=== PATIENT | female | born 1975 | race Caucasian/White ===

== ENCOUNTER 2017-10-07 09:26 | Emergency (ER) | payer BC ==
[~2017-10-07] VITALS: Ht 172.7 cm; Wt 54.0 kg
[~2017-10-07 09:26] MED LIST: AMLO2.5T2 PO
[2017-10-07 11:05] LABS: BASOPHILS # (AUTO) 0.1 X10'3 (0-0.2); BASOPHILS % (AUTO) 0.6 % (0-1); EOSINOPHILS # (AUTO) 0.3 X10'3 (0-0.9); EOSINOPHILS % (AUTO) 3.1 % (0-6); HEMATOCRIT 37.6 % (35.0-45.0); HEMOGLOBIN 13.1 g/dl (12.0-16.0); LYMPHOCYTES # (AUTO) 1.4 X10'3 (1.1-4.8); LYMPHOCYTES % (AUTO) 17.2 % (21-51); MEAN CORPUSCULAR HEMOGLOBIN 33.1 PG (27.0-31.0); MEAN CORPUSCULAR HGB CONC 34.8 % (33.0-36.5); MEAN CORPUSCULAR VOLUME 95.1 FL (78-98); MEAN PLATELET VOLUME 8.5 FL (7.4-10.4); MONOCYTES # (AUTO) 0.3 X10'3 (0-0.9); MONOCYTES % (AUTO) 3.2 % (2-12); NEUTROPHILS # (AUTO) 6.3 X10'3 (1.8-7.7); NEUTROPHILS % (AUTO) 75.9 % (42-75); PLATELET COUNT 209 X10'3 (140-440); RED BLOOD COUNT 3.96 X10'6 (4.20-5.60); RED CELL DISTRIBUTION WIDTH 13.8 % (11.5-14.5); WHITE BLOOD COUNT 8.3 X10'3 (4.5-11.0)
[2017-10-07 11:15] LABS: ALBUMIN 3.9 G/DL (3.4-5.0); ANION GAP 8 (8-16); BLOOD UREA NITROGEN 12 MG/DL (7-18); BUN/CREATININE RATIO 19.7 (6.6-38.0); CALCIUM 8.3 MG/DL (8.5-10.1); CHLORIDE 108 MMOL/L (99-107); CREATININE 0.61 MG/DL (0.40-0.90); GLUCOSE 93 MG/DL (70-104); POTASSIUM 3.9 MMOL/L (3.5-5.1); SODIUM 142 MMOL/L (135-145); TOTAL CARBON DIOXIDE 26.5 MMOL/L (24-32); eGFR > 90 ML/MIN
[2017-10-07 11:41] VITALS: BP 116/77
== END 2017-10-07 11:43 | disposition home or self-care (01) ==
LOC: ER 09:27
DX: N93.9 Abnormal uterine and vaginal bleeding, unspecified (principal)
CPT/HCPCS: 36415; 80048; 85025; 99284

== ENCOUNTER 2019-01-14 08:56 | Emergency (ER) | payer BC ==
[~2019-01-14] VITALS: Ht 172.7 cm; Wt 76.0 kg
[2019-01-14 09:06] VITALS: BP 116/72
[2019-01-14] MEDS ORDERED: ketorolac tromethamine 15mg/ml inj. IM ONE (09:55)
[2019-01-14] MEDS ORDERED: predniSONE 20 mg tablet PO ONE (09:55)
[2019-01-14] MEDS ORDERED: PRED20TA PO (10:09)
== END 2019-01-14 10:30 | disposition home or self-care (01) ==
LOC: ER 08:57
DX: M79.602 Pain in left arm (principal); Z98.890 Other specified postprocedural states; Z79.899 Other long term (current) drug therapy; Z88.1 Allergy status to other antibiotic agents
CPT/HCPCS: 96372; 99283; J1885; J7512

== ENCOUNTER 2020-11-06 06:53 | Emergency (ER) | payer BC ==
[~2020-11-06] VITALS: Ht 172.7 cm; Wt 68.2 kg
[2020-11-06 07:02] VITALS: BP 134/73
[2020-11-06] MEDS ORDERED: ALBUTEROL INHALER 1 PUFF/90 MCG INHALER IH PRN (08:00)
[2020-11-06] MEDS ORDERED: BENZ-16 PO (08:07)
== END 2020-11-06 09:54 | disposition home or self-care (01) ==
LOC: ER 06:54
DX: J02.9 Acute pharyngitis, unspecified (principal); Z20.822 Contact with and (suspected) exposure to COVID-19; R09.81 Nasal congestion; M79.18 Myalgia, other site; R53.83 Other fatigue; R05 Cough; R06.02 Shortness of breath; R51.9 Headache, unspecified; F41.9 Anxiety disorder, unspecified; F17.200 Nicotine dependence, unspecified, uncomplicated; F12.90 Cannabis use, unspecified, uncomplicated; Z98.890 Other specified postprocedural states; Z88.1 Allergy status to other antibiotic agents; Z79.899 Other long term (current) drug therapy
CPT/HCPCS: 36415; 71045; 99284; U0003; U0005; 94640; 94760

== ENCOUNTER 2021-08-22 06:35 | Emergency (ER) | payer BC ==
[~2021-08-22] VITALS: Ht 172.7 cm; Wt 68.2 kg
[2021-08-22 06:50] VITALS: BP 113/74
[2021-08-22] MEDS ORDERED: acetaminophen 325mg tablet PO ONE (07:45)
[2021-08-22] MEDS ORDERED: ketorolac trometh inj. 60 MG/2 ML VIAL IM ONE (07:45)
[2021-08-22] MEDS ORDERED: ketorolac trometh. 30mg/ml inj. IM ONE (07:50)
[2021-08-22] MEDS ORDERED: triamcinolone acetonide 40mg/ml inj IM ONE (08:05)
[2021-08-22] MEDS ORDERED: HYDR-3965 PO (08:34)
[2021-08-22] MEDS ORDERED: CYCL-1 PO (08:34)
== END 2021-08-22 08:45 | disposition home or self-care (01) ==
LOC: ER 06:36
DX: M25.512 Pain in left shoulder (principal); F12.90 Cannabis use, unspecified, uncomplicated; Z98.891 History of uterine scar from previous surgery; Z88.1 Allergy status to other antibiotic agents; Z79.899 Other long term (current) drug therapy
CPT/HCPCS: 20552; 73030; 96372; 99284; J1885

== ENCOUNTER 2024-09-28 07:30 | Emergency (ER) | payer BC ==
[~2024-09-28] VITALS: Ht 170.2 cm; Wt 73.3 kg
[~2024-09-28 07:30] MED LIST changes: +CYCL-1 PO; +DEXA6TAB PO; +FAMO20TA47 PO; +ONDA-243 PO
[2024-09-28 08:23] LABS: BASOPHILS # (AUTO) 0.1 X10'3 (0-0.2); BASOPHILS % (AUTO) 0.5 % (0-1); EOSINOPHILS # (AUTO) 0.3 X10'3 (0-0.9); EOSINOPHILS % (AUTO) 2.4 % (0-6); HEMATOCRIT 40.4 % (35.0-45.0); HEMOGLOBIN 13.9 g/dl (12.0-16.0); LYMPHOCYTES # (AUTO) 1.5 X10'3 (1.1-4.8); LYMPHOCYTES % (AUTO) 12.5 % (21-51); MEAN CORPUSCULAR HEMOGLOBIN 32.3 PG (27.0-31.0); MEAN CORPUSCULAR HGB CONC 34.5 g/dL (33.0-36.5); MEAN CORPUSCULAR VOLUME 93.7 FL (78-98); MEAN PLATELET VOLUME 8.5 FL (7.4-10.4); MONOCYTES # (AUTO) 0.5 X10'3 (0-0.9); MONOCYTES % (AUTO) 4.5 % (2-12); NEUTROPHILS # (AUTO) 9.6 X10'3 (1.8-7.7); NEUTROPHILS % (AUTO) 80.1 % (42-75); PLATELET COUNT 285 X10'3 (140-440); RED BLOOD COUNT 4.31 X10'6 (4.20-5.60); RED CELL DISTRIBUTION WIDTH 13.1 % (11.5-14.5)
[2024-09-28] MEDS: oxyCODONE/APAP 5-325mg tablet PO ONE ×2 (08:43→12:27)
[2024-09-28] MEDS: ondansetron 4mg rapidly disintigrating tab PO ONE (08:44)
[2024-09-28 08:47] LABS: ALANINE AMINOTRANSFERASE 16 U/L (12-78); ALBUMIN 3.9 G/DL (3.4-5.0); ALKALINE PHOSPHATASE 85 IU/L (46-116); ANION GAP 7 (8-16); ASPARTATE AMINO TRANSFERASE 11 U/L (10-37); BILIRUBIN,TOTAL 0.7 MG/DL (0.1-1.0); BLOOD UREA NITROGEN 10 MG/DL (7-18); BUN/CREATININE RATIO 19.6 (10.0-20.0); CALCIUM 8.5 MG/DL (8.5-10.1); CHLORIDE 106 MMOL/L (99-107); CREATININE 0.51 MG/DL (0.40-0.90); GLUCOSE 98 MG/DL (70-104); LIPASE 21 U/L (16-77); POTASSIUM 3.7 MMOL/L (3.5-5.1); SODIUM 138 MMOL/L (135-145); TOTAL CARBON DIOXIDE 24.6 MMOL/L (24-32); TOTAL PROTEIN 7.7 G/DL (6.4-8.2); eCRCL 131 ML/MIN; eGFR > 90 ML/MIN
[2024-09-28 09:20] LABS: URINE HCG NEGATIVE (NEG)
[2024-09-28 09:25] LABS: BILIRUBIN,URINE NEGATIVE (Neg); CLARITY,URINE CLEAR (Clear); COLOR,URINE YELLOW (Yellow); GLUCOSE, URINE NEGATIVE (Neg); KETONES,URINE NEGATIVE (Neg); LEUKOCYTE ESTERASE ,URINE NEGATIVE (Neg); NITRITES, URINE NEGATIVE (Neg); OCCULT BLOOD,URINE NEGATIVE (Neg); PROTEIN,URINE NEGATIVE (Neg); UROBILINOGEN,URINE 0.2 E.U/dL (0.2-1.0)
[2024-09-28 09:38] LABS: UA COLLECTION TYPE CLN CATCH MIDSTREAM
[2024-09-28] MEDS: ketorolac trometh 30MG/ML vial 30 MG/ML VIAL IM ONE (12:39)
[2024-09-28] MEDS ORDERED: CYCL-394 PO (13:49)
[2024-09-28] MEDS ORDERED: IBUP-1986 PO (13:49)
[2024-09-28 14:01] VITALS: BP 124/78; PULSE 68; RESP 16; TEMP 97.8; O2SAT 96
== END 2024-09-28 14:10 | disposition home or self-care (01) ==
LOC: ER 07:30
DX: M54.59 Other low back pain (principal); F41.9 Anxiety disorder, unspecified; F12.90 Cannabis use, unspecified, uncomplicated; Z88.1 Allergy status to other antibiotic agents; Z79.899 Other long term (current) drug therapy; Z98.890 Other specified postprocedural states
CPT/HCPCS: 36415; 72131; 80053; 81003; 81025; 83690; 85025; 96372; 99285; J1885